=== PATIENT | female | born 1965 | race Caucasian/White ===

== ENCOUNTER 2018-02-21 09:13 | Day surgery (SDC) | payer BC ==
[2018-02-21] MEDS ORDERED: MIDAZOLAM 1 MG/ML 2 ML INJ ×2 (13:28)
[2018-02-21] MEDS ORDERED: FENTAnyl 50 MCG/ML VIAL (13:29)
== END 2018-02-21 11:33 | disposition home or self-care (01) ==
LOC: GIL 09:13
DX: Z12.11 Encounter for screening for malignant neoplasm of colon (principal); K64.4 Residual hemorrhoidal skin tags
CPT/HCPCS: 45378